=== PATIENT | male | born 1975 | race Caucasian/White ===

== ENCOUNTER 2018-12-05 07:36 | Emergency (ER) | payer MEDICAID ==
[~2018-12-05] VITALS: Ht 162.6 cm; Wt 67.0 kg
[2018-12-05 07:41] VITALS: BP 147/90; PULSE 97; RESP 18; Ht 162.6 cm; Wt 67.0 kg
[2018-12-05] MEDS ORDERED: NAPR-985 PO (09:52)
[2018-12-05] MEDS ORDERED: HYDR-4011 PO (09:52)
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
== END 2018-12-05 10:15 | disposition home or self-care (01) ==
LOC: FTE 07:36
DX: R51 Headache (principal); R68.84 Jaw pain; M79.605 Pain in left leg
CPT/HCPCS: 70450; 70486; 73550